=== PATIENT | female | born 1995 | race Caucasian/White ===

== ENCOUNTER 2022-05-13 12:17 | Emergency (ER) | payer MEDICAID, SELFPAY ==
[2022-05-13 12:17] VITALS: BP 138/101; PULSE 112; RESP 16; TEMP 37.1; O2SAT 100; BMI 17.1
--- NOTE | 2022-05-13 12:29 | EDS_ITS ---
HPI <WAI Mosher - Last Filed: 05/13/22 17:15> History of Present Illness Chief Complaint: Suicidal Narrative Narrative: 27-year-old female presents with suicidal ideation and thoughts of cutting herself that started yesterday. She says she has untreated anxiety and depression and is never seen anyone for this. She is at home alone with her young children who are 5 and 3 years old. She states her boyfriend is off somewhere and is dealing with his own mental health problems. She has been extremely stressed. 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 Yesterday after waking up she had thoughts of cutting herself. She has done this in the past but it was a few years ago. She has not actively tried to call harm herself yet but called her mom to watch her kids so she could come in for treatment. She states if she goes home she does not feel safe. Recently she was taking her aunts buspirone medication for anxiety. She is not prescribed anything herself. She smokes cigarettes and weed daily, denies other drug use. PFSH <WAI Mosher - Last Filed: 05/13/22 17:15> [facility] Medical History no medical history Allergy/AdvReac Type Severity Reaction Status Date / Time No Known Allergies Allergy Verified 05/13/22 12:20 Family History no significant family his Surgical History no surgical history Social History Smoking Status: Current every day smoker tobacco type: cigarettes ROS <WAI Mosher Last Filed: 05/13/22 17:15> ROS ED ROS Narrative Constitutional: Negative for fever, chills, malaise. Eyes: Negative for visual change. ENT: Negative for sore throat, ear pain, rhinorrhea. CVS: Negative for palpitations, chest pain, syncope. Respiratory: Negative for shortness of breath, cough, orthopnea. GI: Negative for abdominal pain, nausea, vomiting, diarrhea, constipation, melena, hematochezia. : Negative for dysuria, hematuria or frequency. Neuro: Negative for headache, motor/sensory dysfunction. Skin: Negative for rash, abscess, or wound. Musc: Negative for joint pain, swelling, trauma. Heme: Negative for easy bruising, bleeding, lymphadenopathy. EXAM <WAI Mosher Last Filed: 05/13/22 17:15> Physical Exam Narrative Exam Narrative: CONST: Patient sitting in no acute distress. EYES: Normal inspection. NECK: Normal inspection. RESP: No respiratory distress, CTAB. CVS: Regular rate and rhythm, no murmur, no gallop. SKIN: Color normal, no rash, warm, dry, intact. EXTREMITIES: Normal appearance, no pedal edema. NEURO: Oriented x4. PSYCH: Normal affect. Const Vital Signs: 05/13/22 12:17 05/13/22 14:00 05/13/22 15:14 Temperature 98.7 F Temperature Source Temporal Pulse Rate 112 H Respiratory Rate 16 16 16 Blood Pressure 138/101 H Blood Pressure Mean 113 Pulse Ox 100 Oxygen Delivery Method Room Air 05/13/22 16:31 Temperature Temperature Source Pulse Rate Respiratory Rate 18 Blood Pressure Blood Pressure Mean Pulse Ox Oxygen Delivery Method <Dr. Noam Young MD - Last Filed: 05/14/22 20:55> Physical Exam Const Vital Signs: 05/13/22 12:17 05/13/22 14:00 05/13/22 15:14 Temperature 98.7 F Temperature Source Temporal Pulse Rate 112 H Respiratory Rate 16 16 16 Blood Pressure 138/101 H Blood Pressure Mean 113 Pulse Ox 100 Oxygen Delivery Method Room Air 05/13/22 16:31 Temperature Temperature Source Pulse Rate Respiratory Rate 18 Blood Pressure Blood Pressure Mean Pulse Ox Oxygen Delivery Method MDM <WAI Mosher - Last Filed: 05/13/22 17:15> MDM MDM Narrative Medical decision making narrative: PA: Patient presents with suicidal ideation with plans to either cut herself or hang herself. She has history of untreated anxiety and depression and does not see a doctor. She appears well and nontoxic here. She is calm and cooperative. Vital signs are within normal limits. Medical exam benign. Labs including CBC, BMP are normal. Urine drug screen positive for THC which she admits to using, alcohol negative. test negative. COVID-19 test negative. At this time she is evaluated by social work with plans to transfer for psychiatric care for SI. She is medically cleared for transfer. Patient remains calm and cooperative here and has not required intervention. Patient was accepted by [facility]. 1. Suicidal ideation with plan I have personally performed a face to face assessment of the patient and have reviewed the EDWARD Note. I performed a substantive portion of the visit including all aspects of the following. My friedman findings include: History per patient is increasing anxiety. She also feels she likely has some depression. She has been having some thoughts of cutting herself or even hanging herself. She states she does not want to do this. She wants to feel better. She has never been officially diagnosed with any psychiatric illness but has never sought treatment. She has a suspicion she has had anxiety for a long time. There is a strong family history of anxiety and depression. She did try some buspirone for short time recently but felt that it either did not thing or may be made her feel little worse. She last took yesterday. She does not have any physical or medical complaints beyond the psychiatric thoughts. Exam is consistent with patient being awake alert and appropriate. She is very open. She seems to be honest. She is very cooperative. She makes good eye contact. She is appropriately dressed and groomed. She is very cooperative. She does have just a very mildly flat affect. Lungs are clear. Heart is regular. Abdomen is benign. There is no flight of ideas. Medical Decison Making: Patient will have medical evaluation. We will have crisis or social work see her. This is a patient who is asking for help. Although she has thought of ways to hurt herself she states she does not want to do this and wants help. She may be amenable and okay for close outside follow- up. She is very cooperative helpful and has good insight. Lab Data Labs: Laboratory Results - last 24 hr 05/13/22 05/13/22 05/13/22 12:40 12:40 12:40 WBC 8.6 RBC 5.19 Hgb 14.0 Hct 43.7 MCV 84.2 MCH 27.0 MCHC 32.0 RDW Std Deviation 37.5 RDW Coeff of Perfecto 12.5 Plt Count 330 MPV 10.5 Immature Gran % (Auto) 0.200 Neut % (Auto) 76.0 H Lymph % (Auto) 18.7 L [place] % (Auto) 4.2 Eos % (Auto) 0.3 Baso % (Auto) 0.6 Absolute Neuts (auto) 6.5 Absolute Lymphs (auto) 1.61 Nucleated RBC % 0 Sodium 139 Potassium 4.0 Chloride 108 H Carbon Dioxide 27.0 Anion Gap 4 L BUN 8 Creatinine 0.77 Estim Creat Clear Calc 74.11 Est GFR (MDRD) Af Amer 117 Est GFR (MDRD) Non-Af 96 BUN/Creatinine Ratio 10.4 Glucose 96 Calcium 9.0 Serum , Qual Urine Test Urine Opiates Screen Urine Methadone Screen Ur Barbiturates Screen Ur Phencyclidine Scrn Ur Amphetamines Screen MDMA (Ecstasy) Screen U Benzodiazepines Scrn Urine Cocaine Screen U Cannabinoids Screen Ur Drug Screen Comment Ethyl Alcohol < 3.0 05/13/22 05/13/22 05/13/22 12:40 12:52 12:52 WBC RBC Hgb Hct MCV MCH MCHC RDW Std Deviation RDW Coeff of Perfecto Plt Count MPV Immature Gran % (Auto) Neut % (Auto) Lymph % (Auto) [place] % (Auto) Eos % (Auto) Baso % (Auto) Absolute Neuts (auto) Absolute Lymphs (auto) Nucleated RBC % Sodium Potassium Chloride Carbon Dioxide Anion Gap BUN Creatinine Estim Creat Clear Calc Est GFR (MDRD) Af Amer Est GFR (MDRD) Non-Af BUN/Creatinine Ratio Glucose Calcium Serum , Qual NEGATIVE Urine Test Negative Urine Opiates Screen NEGATIVE Urine Methadone Screen NEGATIVE Ur Barbiturates Screen NEGATIVE Ur Phencyclidine Scrn NEGATIVE Ur Amphetamines Screen NEGATIVE MDMA (Ecstasy) Screen NEGATIVE U Benzodiazepines Scrn NEGATIVE Urine Cocaine Screen NEGATIVE U Cannabinoids Screen POSITIVE H Ur Drug Screen Comment Ethyl Alcohol <Dr. Noam Young MD - Last Filed: 05/14/22 20:55> MDM MDM Narrative Medical decision making narrative: I have personally performed a face to face assessment of the patient and have reviewed the EDWARD Note. I performed a substantive portion of the visit including all aspects of the following. My friedman findings include: History per patient is increasing anxiety. She also feels she likely has some depression. She has been having some thoughts of cutting herself or even hanging herself. She states she does not want to do this. She wants to feel better. She has never been officially diagnosed with any psychiatric illness but has never sought treatment. She has a suspicion she has had anxiety for a long time. There is a strong family history of anxiety and depression. She did try some buspirone for short time recently but felt that it either did not thing or may be made her feel little worse. She last took yesterday. She does not have any physical or medical complaints beyond the psychiatric thoughts. Exam is consistent with patient being awake alert and appropriate. She is very open. She seems to be honest. She is very cooperative. She makes good eye contact. She is appropriately dressed and groomed. She is very cooperative. She does have just a very mildly flat affect. Lungs are clear. Heart is regular. Abdomen is benign. There is no flight of ideas. Medical Decison Making: Patient will have medical evaluation. We will have crisis or social work see her. This is a patient who is asking for help. Although she has thought of ways to hurt herself she states she does not want to do this and wants help. She may be amenable and okay for close outside follow- up. She is very cooperative helpful and has good insight. Lab Data Labs: Laboratory Results - last 24 hr 05/13/22 05/13/22 05/13/22 12:40 12:40 12:40 WBC 8.6 RBC 5.19 Hgb 14.0 Hct 43.7 MCV 84.2 MCH 27.0 MCHC 32.0 RDW Std Deviation 37.5 RDW Coeff of Perfecto 12.5 Plt Count 330 MPV 10.5 Immature Gran % (Auto) 0.200 Neut % (Auto) 76.0 H Lymph % (Auto) 18.7 L [place] % (Auto) 4.2 Eos % (Auto) 0.3 Baso % (Auto) 0.6 Absolute Neuts (auto) 6.5 Absolute Lymphs (auto) 1.61 Nucleated RBC % 0 Sodium 139 Potassium 4.0 Chloride 108 H Carbon Dioxide 27.0 Anion Gap 4 L BUN 8 Creatinine 0.77 Estim Creat Clear Calc 74.11 Est GFR (MDRD) Af Amer 117 Est GFR (MDRD) Non-Af 96 BUN/Creatinine Ratio 10.4 Glucose 96 Calcium 9.0 Serum , Qual Urine Test Urine Opiates Screen Urine Methadone Screen Ur Barbiturates Screen Ur Phencyclidine Scrn Ur Amphetamines Screen MDMA (Ecstasy) Screen U Benzodiazepines Scrn Urine Cocaine Screen U Cannabinoids Screen Ur Drug Screen Comment Ethyl Alcohol < 3.0 05/13/22 05/13/22 05/13/22 12:40 12:52 12:52 WBC RBC Hgb Hct MCV MCH MCHC RDW Std Deviation RDW Coeff of Perfecto Plt Count MPV Immature Gran % (Auto) Neut % (Auto) Lymph % (Auto) [place] % (Auto) Eos % (Auto) Baso % (Auto) Absolute Neuts (auto) Absolute Lymphs (auto) Nucleated RBC % Sodium Potassium Chloride Carbon Dioxide Anion Gap BUN Creatinine Estim Creat Clear Calc Est GFR (MDRD) Af Amer Est GFR (MDRD) Non-Af BUN/Creatinine Ratio Glucose Calcium Serum , Qual NEGATIVE Urine Test Negative Urine Opiates Screen NEGATIVE Urine Methadone Screen NEGATIVE Ur Barbiturates Screen NEGATIVE Ur Phencyclidine Scrn NEGATIVE Ur Amphetamines Screen NEGATIVE MDMA (Ecstasy) Screen NEGATIVE U Benzodiazepines Scrn NEGATIVE Urine Cocaine Screen NEGATIVE U Cannabinoids Screen POSITIVE H Ur Drug Screen Comment Ethyl Alcohol Discharge Plan Triage Chief Complaint: Suicidal ED Midlevel Provider: Makenna Landis ED Provider: Noam Young Dx/Rx/DC Orders Primary Care Provider: Care Physician,No Primary Referrals: Care Physician,No Primary [Primary Care Provider] - Disposition Disposition: Psychiatric Hospital or Unit
[2022-05-13 13:07] LABS: Internal QC Validated? YES +Cl - CLEAR BKGD; Pregnancy, Serum, hCG Quali. NEGATIVE Negative
[2022-05-13 13:13] LABS: Anion Gap 4 (5-15); BUN 8 mg/dL (7-18); BUN/Creat Ratio 10.4 RATIO (10-20); Chloride 108 mmol/L (98-107); Creatinine, Serum 0.77 mg/dL (0.55-1.02); EST Glomerular Filtration Rate 96 mL/min (>60); Est Glom Filt Rate - Afr Amer 117 mL/min (>60); Estimated Creatinine Clearance 74.11 ml/min; Glucose 96 mg/dL (74-106); Sodium Level 139 mmol/L (136-145)
[2022-05-13 13:22] LABS: Alcohol, Blood (Medical)-Serum < 3.0 mg/dL
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
[2022-05-13 13:26] LABS: Amphetamine Urine VISTA NEGATIVE (<1000 ng/mL); Barbiturate Urine VISTA NEGATIVE (< 200 ng/mL); Benzodiazepine Urine VISTA NEGATIVE (< 200 ng/mL); Cocaine Urine VISTA NEGATIVE (< 300 ng/mL); Ecstacy Urine VISTA NEGATIVE (< 500 ng/mL); Methadone Urine VISTA NEGATIVE (< 300 ng/mL); PCP Urine VISTA NEGATIVE (< 25 ng/mL); THC Urine VISTA POSITIVE (< 50 ng/mL); Vista UDS pH Range 6
[2022-05-13 14:00] VITALS: RESP 16
[2022-05-13 14:00] LABS: Absolute Lymphocyte Count 1.61 X10^3/uL (0.83-4.51); Absolute Neutrophil Count 6.5 X10^3/uL (2.0-7.7); Basophil# 0.05 X10^3/uL; Basophil% 0.6 % (0-1); Eosinophil# 0.03 X10^3/uL; Eosinophils% 0.3 % (0-5); Hematocrit 43.7 % (37-47); Lymphocyte # 1.61 X10^3/ul (0.83-4.51); Lymphocyte % 18.7 % (19-41); Mean Corpuscular Volume 84.2 fL (81-99); Mean Platelet Vol. 10.5 fl (6.2-12.0); Monocyte# 0.36 X10^3/uL; Monocyte% 4.2 % (0-10); NRBC Flagged by Analyzer 0 % (0-5); Neutrophil # 6.54 X10^3/uL (2.7-7.7); Platelet Count 330 K/mm3 (150-450); RBC Distribution Width CV 12.5 % (11.6-14.6); RBC Distribution Width SD 37.5 fl (35.1-43.9); Red Blood Count 5.19 M/mm3 (4.2-5.4); White Blood Count 8.6 K/mm3 (4.4-11.0)
[2022-05-13 14:31] LABS: Internal QC Validated? YES +Cl - CLEAR BKGD; Pregnancy, Urine Negative Negative
[2022-05-13 15:14] VITALS: RESP 16
[2022-05-13 16:31] VITALS: RESP 18
--- NOTE | 2022-05-13 16:35 | CM.ED ---
Addendum entered by Dianne Mckeon 05/13/22 20:11: Patient going to [facility] [facility] Original Note: Per Cristina from [facility]. Patient accepted at [facility] by Amado. RN to RN is [phone]. Lynx will picker and packer patient at 7[facility]. RN, MD and reimbursement rep updated. SW updated patient. SW provided emotional support to patient. [place] slip faxed to [facility]. Plan: [facility]. Dianne LYNCH
[2022-05-13 18:01] VITALS: PULSE 84; RESP 16; O2SAT 98
== END 2022-05-13 19:26 ==
PROVIDERS: Physician Assistant; Emergency Provider Emergency Medicine; Visit Provider Emergency Medicine
DX: R45.851 Suicidal ideations (principal); F41.9 Anxiety disorder, unspecified; F17.210 Nicotine dependence, cigarettes, uncomplicated; F32.A Depression, unspecified; Z20.822 Contact with and (suspected) exposure to COVID-19
CPT/HCPCS: 36415; 80048; 80307; 81025; 82077; 84703; 85025; 87811; 99285